=== PATIENT | female | born 1965 | race African-American/Black ===

== ENCOUNTER 2016-07-01 08:26 | Emergency (ER) | payer OTHER ==
[2016-07-01 08:36] VITALS: TEMP 98.2; BMI 42.0
--- NOTE | 2016-07-01 08:50 | PDOC ---
History of Present Illness - General History Source: Patient - History of Present Illness Presenting Symptoms: Chest Pain Timing/Duration: reports: intermittent Severity/Quality: reports: sharp <Donna ShresthaJoshua - Last Filed: 07/01/16 13:08> <Alex Mejia - Last Filed: 07/06/16 18:54> - General Chief Complaint: Chest Pain Stated Complaint: CHEST PAIN, NUMBNESS TO LT ARM Time Seen by Provider: 07/01/16 08:35 Past History - Past Medical History Anemia: No Asthma: Yes Cancer: No Cardiac Disorders: No CVA: No COPD: No CHF: No Dementia: No Diabetes: Yes (boarderline not on medication) GI Disorders: No Disorders: No HTN: No Hypercholesterolemia: No Kidney Stones: No Liver Disease: No Suicide Attempt (Hx): No (denies today. ) Seizures: No Thyroid Disease: No - Surgical History Abdominal Surgery: No Appendectomy: No Cardiac Surgery: No Cholecystectomy: No Lung Surgery: No Neurologic Surgery: No Orthopedic Surgery: Yes (rt.knee sx 2011) - Psycho/Social/Smoking Cessation Hx Anxiety: Yes Suicidal Ideation: No Smoking History: Former smoker Have you smoked in the past 12 months: Yes Number of Cigarettes Smoked Daily: 10 Information on smoking cessation initiated: No 'Breaking Loose' booklet given: 09/16/15 Hx Alcohol Use: No Drug/Substance Use Hx: No Substance Use Type: Prescribed Hx Substance Use Treatment: Yes <New Zealander,Rene - Last Filed: 07/01/16 13:08> <Alex Mejia - Last Filed: 07/06/16 18:54> - Past Medical History Allergies/Adverse Reactions: Allergies Allergy/AdvReac Type Severity Reaction Status Date / Time No Known Allergies Allergy Verified 07/01/16 08:36 Home Medications: Ambulatory Orders Escitalopram Oxalate [Lexapro -] 20 mg PO DAILY #30 tablet 09/17/15 Quetiapine Fumarate [Seroquel] 100 mg PO TID #90 tablet 09/17/15 Zolpidem Tartrate [Ambien] 10 mg PO HS #14 tablet MDD 10 09/17/15 Albuterol Sulfate Inhaler - [Ventolin HFA Inhaler -] 2 inh IH Q4H PRN #1 inhaler 09/20/15 Cardiac Specific PMH - Complaint Specific PMHX Pacemaker: No <Jacqueline ShresthaStef - Last Filed: 07/01/16 13:08> Review of Systems - Review of Systems Constitutional: No: Chills, Fever Respiratory: No: Cough, Shortness of Breath Cardiac (ROS): Yes: Chest Pain. No: Palpitations ABD/GI: No: Nausea, Vomiting Musculoskeletal: No: Neck Pain Neurological: Yes: Numbness <Jacqueline ShresthaStef - Last Filed: 07/01/16 13:08> *Physical Exam - Physical Exam General Appearance: Yes: Appropriately Dressed, Other (appears anxious) HEENT: positive: Normal Voice Neck: positive: Supple Respiratory/Chest: positive: Lungs Clear, Normal Breath Sounds. negative: Respiratory Distress Cardiovascular: positive: Regular Rate, S1, S2 Gastrointestinal/Abdominal: positive: Soft. negative: Tender Extremity: positive: Normal Inspection Integumentary: positive: Dry, Warm Neurologic: positive: Fully Oriented, Alert, Normal Mood/Affect <[place] ZealanderJacquelineJoshua - Last Filed: 07/01/16 13:08> - Vital Signs Last Vital Signs Temp Pulse Resp BP Pulse Ox 98.2 F 73 18 116/77 99 07/01/16 08:28 07/01/16 13:16 07/01/16 13:16 07/01/16 13:16 07/01/16 13:16 Heart Score/ECG Review - History History: Slightly suspicious - Electrocardiogram EKG: Normal - Age Age: 45-65 - Risk Factors Risk Factors Heart Score: Yes Hx Hypertension, Yes Hx Diabetes, Yes Hx Obesity Based on the list above the patient has:: >/=3 risk factors or Hx atherosclerotic disease - Troponin Troponin: </= normal limit - Score Heart Score - Total: 3 <New ZealanderJacquelineJoshua - Last Filed: 07/01/16 13:08> <Alex Mejia - Last Filed: 07/06/16 18:54> - ECG Intrepretation Comment:: 07/01/16 09:20 Twelve-lead EKG was performed and reviewed by me. There is normal sinus rhythm with a normal rate. The axis is normal. The intervals are normal. There are no ST or T wave abnormalities. Impression: Normal twelve-lead EKG 07/01/16 10:39 (Rene Shrestha) ED Treatment Course - LABORATORY CBC & Chemistry Diagram: 07/01/16 08:45 07/01/16 12:25 <Rene Shrestha - Last Filed: 07/01/16 13:08> - LABORATORY CBC & Chemistry Diagram: 07/01/16 08:45 07/01/16 12:25 <Alex Mejia - Last Filed: 07/06/16 18:54> - ADDITIONAL ORDERS Additional order review: 07/01/16 08:45 RBC 4.50 MCV 87.2 MCHC 33.3 RDW 14.6 MPV 7.4 L Neutrophils % 54.8 Lymphocytes % 33.9 Monocytes % 9.2 Eosinophils % 1.0 Basophils % 1.1 - Medications Given in the ED: ED Medications Discontinued Medications Generic Name Dose Route Start Last Admin Trade Name Freq PRN Reason Stop Dose Admin Aspirin 243 mg 07/01/16 08:44 07/01/16 09:39 Asa - PO 07/01/16 08:45 243 mg ONCE ONE Administration Medical Decision Making <Rene Shrestha - Last Filed: 07/01/16 13:08> <Alex Mejia - Last Filed: 07/06/16 18:54> - Medical Decision Making 07/01/16 08:45 51-year-old female history of depression, benzo dependence, asthma, non-insulin- dependent diabetes, heart murmur, hypertension, here with chest pain. Patient reports left-sided sharp chest pain that started last night and "moves around chest" as per patient, worsened when she took a deep breath and lasted for several minutes and then resolved. States pain recurred at 6 AM today and esolved after several minutes. Also complaining of possible diaphoresis, no nausea, vomiting, palpitations, leg pain or swelling. No history of similar symptoms as per patient. States she is scheduled for a stress test at 1 PM today. Last stress test was several years ago and negative as per patient. No obvious risk factors for DVT/PE. Pt also c/o numbness to b/l hands x 1 week. No neck pain See exam CP Not great story for ACS, no RFs for DVT/PE, unlikely dissection or PNA Stable in ED but appears anxious Rest of exam unremarkable -ekg -asa -labs -If calculated heart score low and trop x 2 neg, can be discharged for out-pt stress today as already scheduled B/l UE numbness No sensory deficit on exam ?peripheral neuropathy given h/o DM -basic labs pending 07/01/16 08:50 07/01/16 09:26 07/01/16 09:52 Isolated AST of greater than 40K!, Was wnl in 2016. Pt denies any ETOH abuse, new medications or h/o hepatitis. No abd pain, n/v or change to BM or urine. Will repeat labs 07/01/16 13:08 Labs, including repeat AST, unremarkable. Patient remains asymptomatic in ED. Given clinical findings and low heart score, feel comfortable discharging patient at this time, to have her f/u for already scheduled stress test immediately after ER visit. 07/01/16 13:11 (Rene Shrestha) 07/06/16 18:54 The patient was seen and evaluated in conjunction with SALTY Shrestha under my direct supervision, ancillary studies were reviewed. I agree with the plan as outlined by SALTY Shrestha . (Alex Mejia) *DC/Admit/Observation/Transfer <Rene Shrestha - Last Filed: 07/01/16 13:08> <Alex Mejia - Last Filed: 07/06/16 18:54> Diagnosis at time of Disposition: Chest pain Qualifiers: Chest pain type: unspecified Qualified Code(s): R07.9 - Chest pain, unspecified - Discharge Dispostion Disposition: HOME Condition at time of disposition: Good - Referrals Referrals: Fran Hernández [Primary Care Provider] - - Patient Instructions Printed Discharge Instructions: DI for Atypical Chest Pain Additional Instructions: Please report for your stress test immediately after ED visit
[2016-07-01 09:04] LABS: BASOPHIL 1.1 % (0-2.0); MCHC 33.3 g/dl (32.0-36.0); MEAN CELL VOLUME 87.2 fl (80-96); MEAN PLT VOLUME 7.4 fl (7.5-11.1); NEUTROPHILS 54.8 % (42.8-82.8); PLATELET COUNT 349 K/MM3 (134-434); RDW 14.6 % (11.6-15.6); WHITE BLOOD COUNT 8.3 K/mm3 (4.0-10.0)
[2016-07-01 09:23] LABS: ALBUMIN 3.5 g/dl (3.4-5.0); ANION GAP 6 (8-16); BILIRUBIN,TOTAL 0.3 mg/dL (0.2-1.0); CALCIUM 8.2 mg/dL (8.5-10.1); CO2 25 mmol/L (21-32); CREATININE 0.7 mg/dL (0.55-1.02); GLUCOSE,RANDOM 99 mg/dL (74-106); SGPT/ALT 30 U/L (12-78); TOT PROT 6.7 g/dl (6.4-8.2)
[2016-07-01 09:26] LABS: ALK PHOS 81 U/L (45-117); TROPONIN I < 0.02 ng/ml (0.00-0.05)
[2016-07-01 09:38] LABS: SGOT/AST 40427 U/L (15-37)
[2016-07-01] MEDS: ASPIRIN 81 MG CHEWABLE TABLETS PO ONE (09:39)
[2016-07-01] MEDS ORDERED: ASPIRIN 81 MG CHEWABLE TABLETS ONE (09:50)
[2016-07-01 12:57] LABS: ALBUMIN 3.6 g/dl (3.4-5.0); ANION GAP 7 (8-16); BILIRUBIN,TOTAL 0.1 mg/dL (0.2-1.0); CALCIUM 8.5 mg/dL (8.5-10.1); CO2 29 mmol/L (21-32); CREATININE 0.8 mg/dL (0.55-1.02); GLUCOSE,RANDOM 80 mg/dL (74-106); SGOT/AST 20 U/L (15-37); SGPT/ALT 29 U/L (12-78); TOT PROT 6.4 g/dl (6.4-8.2)
[2016-07-01 12:59] LABS: ALK PHOS 62 U/L (45-117); TROPONIN I < 0.02 ng/ml (0.00-0.05)
[2016-07-01 13:17] VITALS: BP 116/77; PULSE 73
--- NOTE | 2016-07-02 09:29 | EKG ---
Test Reason : Blood Pressure : / mmHG Vent. Rate : 081 BPM Atrial Rate : 081 BPM P-R Int : 154 ms QRS Dur : 086 ms QT Int : 382 ms P-R-T Axes : 060 -06 041 degrees QTc Int : 443 ms NORMAL SINUS RHYTHM POSSIBLE LEFT ATRIAL ENLARGEMENT NONSPECIFIC T WAVE ABNORMALITY ABNORMAL ECG NO PREVIOUS ECGS AVAILABLE Confirmed by LORNA KATZ MD ([id number]) on 07/02/2016 9:29:03 AM Referred By: Confirmed By:LORNA KATZ MD
== END 2016-07-01 13:48 | disposition home or self-care (01) ==
LOC: JER 08:26
DX: R07.9 Chest pain, unspecified (principal); I10 Essential (primary) hypertension; E11.9 Type 2 diabetes mellitus without complications; J45.909 Unspecified asthma, uncomplicated; E66.09 Other obesity due to excess calories; Z68.41 Body mass index [BMI] 40.0-44.9, adult
CPT/HCPCS: 36415; 71010-TC; 80053; 82550; 82553; 83880; 84484; 84703; 85025; 93005; 93010; 99282-25

== ENCOUNTER 2018-06-26 08:11 | Inpatient (IN) | payer OTHER ==
[2018-06-19 17:15] VITALS: BMI 37.1
[2018-06-26] MEDS ORDERED: BUPIVACAINE HCL 0.25% 125 MG/50 ML VIAL ONE (09:37)
--- NOTE | 2018-06-26 09:38 | HP ---
Admitting History and Physical - Admission Chief Complaint: Morbid obesity. BMI 37.1 History Source: Patient Limitations to Obtaining History: No Limitations - Past Medical History Cardiovascular: Yes: HTN, Hyperlipdemia Pulmonary: Yes: Sleep Apnea ...LMP: 09/15/15 ...LMP Comment: 2 y ago ...: No Endocrine: Yes: Diabetes Mellitus - Past Surgical History Past Surgical History: Yes: Additional Past Surgical History: Right knee surgery - Smoking History Smoking history: Former smoker Have you smoked in the past 12 months: Yes Aproximately how many cigarettes per day: 10 - Alcohol/Substance Use Hx Alcohol Use: No Home Medications - Allergies Allergies/Adverse Reactions: Allergies Allergy/AdvReac Type Severity Reaction Status Date / Time No Known Allergies Allergy Verified 06/19/18 16:58 - Home Medications Home Medications: Ambulatory Orders Escitalopram Oxalate [Lexapro -] 20 mg PO DAILY #30 tablet 09/17/15 Zolpidem Tartrate [Ambien] 10 mg PO HS #14 tablet 09/17/15 Albuterol Sulfate [Proair Hfa] 8.5 gm IH DAILY 06/19/18 Atorvastatin Ca [Lipitor] 40 mg PO DAILY 06/19/18 Ezetimibe [Zetia] 10 mg PO DAILY 06/19/18 Gabapentin 400 mg PO TID 06/19/18 Hydroxyzine HCl 50 mg PO DAILY 06/19/18 Losartan Potassium 50 mg PO DAILY 06/19/18 Meloxicam 15 mg PO DAILY 06/19/18 Oxycodone HCl 10 mg PO PRN PRN 06/19/18 Semaglutide [Ozempic] 0.5 mg SQ WEEKLY 06/19/18 Famotidine [Pepcid] 20 mg PO BID #60 tablet 06/26/18 Prednisone 20 mg PO ONCE 06/26/18 Family Disease History - Family Disease History Family Disease History: Heart Disease: Mother (), CA: Father () , Mother Review of Systems - Review of Systems Constitutional: denies: Chills, Fever Neck: reports: No Symptoms Cardiovascular: reports: No Symptoms Respiratory: reports: No Symptoms Gastrointestinal: reports: No Symptoms. denies: Abdominal Pain Neurological: reports: No Symptoms Pain Intensity: 0 Physical Examination Vital Signs: Vital Signs Temperature 98.6 F 06/26/18 08:54 Pulse Rate 76 06/26/18 08:54 Respiratory Rate 18 04/08/19 08:54 Blood Pressure 118/65 06/26/18 08:54 O2 Sat by Pulse Oximetry (%) Constitutional: Yes: Calm, Obese Neck: Yes: WNL Cardiovascular: Yes: WNL Respiratory: Yes: WNL, Regular Gastrointestinal: Yes: Soft, Abdomen, Obese. No: Tenderness Neurological: Yes: Alert, Oriented Problem List - Problems (1) Morbid obesity due to excess calories Code(s): E66.01 - MORBID (SEVERE) OBESITY DUE TO EXCESS CALORIES (2) BMI 37.0-37.9, adult Code(s): Z68.37 - BODY MASS INDEX (BMI) 37.0-37.9, ADULT (3) Diabetes mellitus type 2 in obese Code(s): E11.69 - TYPE 2 DIABETES MELLITUS WITH OTHER SPECIFIED COMPLICATION; E66.9 - OBESITY, UNSPECIFIED (4) Hypertension Code(s): I10 - ESSENTIAL (PRIMARY) HYPERTENSION Qualifiers: Hypertension type: unspecified Qualified Code(s): I10 - Essential (primary ) hypertension (5) Hyperlipidemia Code(s): E78.5 - HYPERLIPIDEMIA, UNSPECIFIED Qualifiers: Hyperlipidemia type: unspecified Qualified Code(s): E78.5 - Hyperlipidemia , unspecified (6) Sleep apnea Code(s): G47.30 - SLEEP APNEA, UNSPECIFIED Qualifiers: Sleep apnea type: unspecified type Qualified Code(s): G47.30 - Sleep apnea , unspecified Assessment/Plan Laparoscopic possible open vertical sleeve gastrectomy possible live rbiopsy possible upper endoscopy
[2018-06-26] MEDS ORDERED: fentaNYL CITRATE 250 MCG/5 ML VIAL ONE (09:54)
[2018-06-26] MEDS ORDERED: MIDAZOLAM HCL 2 MG/2 ML SINGLE DOSE VIAL ONE (09:54)
[2018-06-26] MEDS ORDERED: ALBUTEROL SO4 8 GM HFA INHALER IH PRN (10:00)
[2018-06-26] MEDS ORDERED: ceFAZolin SODIUM 1 GM VIAL ONE (11:18)
[2018-06-26] MEDS ORDERED: ePHEDrine SULFATE 50 MG/1 ML AMPULE ONE (11:18)
[2018-06-26] MEDS ORDERED: DEXAMETHASONE SOD PHOSPHATE 4 MG/1 ML VIAL ONE (11:18)
[2018-06-26] MEDS ORDERED: ONDANSETRON 4 MG/2 ML VIAL ONE (11:18)
[2018-06-26] MEDS ORDERED: NEOSTIGMINE METHYLSULFATE 0.5 MG/ML - 10 ML MDV ONE (11:30)
[2018-06-26] MEDS ORDERED: GLYCOPYRROLATE 0.2 MG/1 ML VIAL ONE ×3 (11:30)
[2018-06-26] MEDS ORDERED: PROPOFOL 20 ML ONE (11:31)
[2018-06-26] MEDS ORDERED: BUPIVACAINE HCL/PF 0.25% (2.5MG/ML) 10 ML VIAL IJ ONE (11:31)
[2018-06-26] MEDS ORDERED: ROCURONIUM BROMIDE 50 MG/5 ML VIAL ONE (11:31)
--- NOTE | 2018-06-26 11:42 | OP ---
Operative Note - Note: Operative Date: 06/26/18 Pre-Operative Diagnosis: Morbid obesity. BMI 37.1. Hyperlipidemia. Hypertension. Diabetes Mellitus type 2. Sleep apnea Operation: Laparoscopic vertical sleeve gastrectomy Post-Operative Diagnosis: Same as Pre-op Surgeon: Ananda Fischer Power Electronics Engineer: Barrera Plummer Anesthesia: General Specimens Removed: Greater curvature of stomach Estimated Blood Loss (mls): 30 Drains & Tubes with Location: 36 Fr Bougie Operative Report Dictated: Yes
[2018-06-26] MEDS ORDERED: FAMOTIDINE 20 MG/50 ML IVPB 20 MG/50 ML MG IVPB ONE (11:43)
[2018-06-26] MEDS ORDERED: METOCLOPRAMIDE HCL INJECTION 10 MG/2 ML VIAL ONE (11:43)
[2018-06-26] MEDS ORDERED: ACETAMINOPHEN INJECTION 100 ML IVPB ONE (11:44)
[2018-06-26] MEDS ORDERED: METOCLOPRAMIDE HCL INJECTION 10 MG/2 ML VIAL IVPUSH SCH (11:45)
[2018-06-26] MEDS ORDERED: ACETAMINOPHEN 1000 MG/100 ML VIAL (NON FORMULARY) IVPB SCH (11:45)
[2018-06-26] MEDS: METOCLOPRAMIDE HCL INJECTION 10 MG/2 ML VIAL IVPUSH SCH ×2 (12:01→18:01)
[2018-06-26] MEDS ORDERED: FAMOTIDINE 20 MG PREMIXED IVPB IVPB ONE (12:10)
[2018-06-26 12:23] LABS: HEMATOCRIT 36.9 % (32.4-45.2); HEMOGLOBIN 12.1 GM/dl (10.7-15.3); MCH 28.1 pg (25.7-33.7); MCHC 32.7 g/dl (32.0-36.0); MEAN CELL VOLUME 86.2 fl (80-96); MEAN PLT VOLUME 7.3 fl (7.5-11.1); PLATELET COUNT 350 K/MM3 (134-434); RBC 4.28 M/mm3 (3.60-5.2); RDW 13.7 % (11.6-15.6); WHITE BLOOD COUNT 11.9 K/mm3 (4.0-10.8)
[2018-06-26 12:39] LABS: ALBUMIN 3.2 g/dl (3.4-5.0); ALK PHOS 57 U/L (45-117); ANION GAP 7 MMOL/L (8-16); BILIRUBIN,TOTAL 0.5 mg/dl (0.2-1); BLOOD UREA NITROGEN 19 mg/dl (7-18); CALCIUM 8.1 mg/dl (8.5-10); CHLORIDE 107 mmol/L (98-107); CO2 23 mmol/L (21-32); CREATININE 0.7 mg/dl (0.55-1.3); GLUCOSE,RANDOM 138 mg/dl (74-106); POTASSIUM 3.5 mmol/L (3.5-5.1); SGOT/AST 24 U/L (15-37); SGPT/ALT 26 U/L (13-61); SODIUM 137 mmol/L (136-145); TOT PROT 5.4 g/dl (6.4-8.2)
[2018-06-26] MEDS: ONDANSETRON 4 MG/2 ML VIAL IVPUSH SCH ×3 (12:45→20:27)
[2018-06-26] MEDS: SODIUM CHLORIDE 1,000 ML IV SCH (13:42)
[2018-06-26] MEDS: HYDROmorphone HCL CARPU-JECT 1 MG/1 ML DISP.SYRIN IVPB PRN ×3 (13:47→22:57)
[2018-06-26] MEDS ORDERED: LACTATED RINGERS SOLUTION 1,000 ML IV SCH (14:00)
[2018-06-26] MEDS: INSULIN SLIDING SCALE (NOVOLOG) 1 VIAL SQ SCH (18:01)
[2018-06-26] MEDS: ACETAMINOPHEN 1000 MG/100 ML VIAL (NON FORMULARY) IVPB SCH (18:02)
--- NOTE | 2018-06-26 19:56 | SPEC ---
DATE OF OPERATION: 06/26/2018 SURGEON: Ananda Fischer MD ANALYTICS ANALYST: Barrera Plummer MD PREOPERATIVE DIAGNOSES: 1. Morbid obesity. 2. Diabetes mellitus, type 2. 3. Hyperlipidemia. 4. Hypertension. 5. Sleep apnea. 6. Body mass index of 37.1. POSTOPERATIVE DIAGNOSES: 1. Morbid obesity. 2. Diabetes mellitus, type 2. 3. Hyperlipidemia. 4. Hypertension. 5. Sleep apnea. 6. Body mass index of 37.1. PROCEDURE: Laparoscopic vertical sleeve gastrectomy. SPECIMEN: Greater curvature of the stomach. BOUGIE: Size 36-Romansh. ESTIMATED BLOOD LOSS: 30 mL. DRAINS: None. ANESTHESIA: GET. REASON FOR PROCEDURE: This is a 53-year-old female who presented to the office for weight loss options. After describing different options, she decided to proceed with a laparoscopic, possible open vertical sleeve gastrectomy, possible liver biopsy, and upper endoscopy. RISKS AND BENEFITS: After describing the different options for weight loss management, the patient decided to proceed with a laparoscopic, possible open vertical sleeve gastrectomy. The patient was seen by the respective subspecialties and cleared for surgery. The risks and benefits of the procedure were explained. These included bleeding, infection, hernia, UT, DVT, PE, injury to surrounding structures including the liver, colon, bowel, spleen, esophagus, vessel injury, nerve injury, weight regain, gastric leak, staple line leak, sleeve leak, obstruction, vitamin deficiency, hair loss, and as some of the possible complications. The patient understood and signed informed consent. DESCRIPTION OF PROCEDURE: The patient was placed supine on the operating room table. The patient underwent general endotracheal intubation. The arms were brought out at 90 degrees and secured. A foot board was placed, and the legs were secured laterally with padding. The abdomen was prepped and draped in the usual sterile fashion. A timeout was performed. An incision was made in the left upper quadrant, and a Veress needle inserted. Pneumoperitoneum was established. Subsequently, the Veress needle was removed, and a 5-mm trocar was placed under direct visualization with the laparoscope. The laparoscopic camera was inserted, and inspection of the abdominal cavity was performed. An incision was made in the supraumbilical region, and a 15-mm trocar placed under direct visualization. A 5-mm trocar was then placed in the right upper quadrant, and a 5-mm trocar placed below the left subcostal margin. A stab wound was made in the subxiphoid area, and a Liz clamp inserted and removed to dilate the tract. A Catarino liver retractor was inserted. The post was secured at the bedside by the nursing staff. The patient was placed in steep reverse Trendelenburg position. The Catarino liver retractor was used to secure the liver towards the anterior abdominal wall. The pylorus was identified and 6 cm proximal to it, the lesser sac was entered using the Ligasure device. All lateral attachments to the greater curvature of the stomach including the short gastric vessels were ligated using the Ligasure device toward the gastrosplenic and gastrophrenic ligaments. Once this was done in its entirety, it was confirmed that all tubes within the nasal or oropharyngeal cavity including a temperature probe was removed by Anesthesia. The bougie was then inserted by Anesthesia. Transection of the stomach was then begun staying adjacent to the bougie but away from the angularis. Transection of the stomach was performed near the portion of the stomach where the lesser sac was entered. Two laparoscopic Endo-GIOVANNA black loads were used at this location. Laparoscopic Endo-GIOVANNA purple loads were then used for the remainder of the transection until the greater curvature of the stomach was fully transected. This was done staying close to the bougie. Care was taken to stay away from the angle of His cephalad. The staple line was then inspected. Hemostasis was identified. A leak test was then performed. The stomach was clamped distally to the staple line. Irrigation solution was placed in the left upper quadrant, and air insufflated by Anesthesia into the sleeve. No leaks were identified, and no obstruction was identified. This was done throughout the entirety of the staple line. In addition, an upper endoscopy was performed. The endoscope was placed into the patients mouth and the entirety of the esophagus, GE junction, gastric pouch and staple line were inspected. No obstruction or leak was noted. The stomach was suctioned and the endoscope removed fully intact. At this point, the irrigation solution was suctioned, and again hemostasis noted. The 15-mm supraumbilical trocar was then removed, and the specimen removed from the site using a sponge stick jo. The specimen was inspected, and a Veress needle inserted. The specimen insufflated adequately, and no leak was identified. The staple line was noted to be intact. A Donte Kyle device was then used to close the fascia with a 0 Vicryl suture at this site. Again, hemostasis was noted. The Catarino liver retractor was then removed under direct visualization. Pneumoperitoneum was desufflated, and the fascial sutures were secured. Hemostasis was noted at all incision sites, and Marcaine was injected at all incision sites. All incision sites were closed using 4-0 Biosyn. Sterile dressings were applied. The patient tolerated the procedure well, and was transferred to the recovery room in stable condition. The patient was transferred to telemetry for further monitoring. Navya [id number]
--- NOTE | 2018-06-26 21:07 | SPEC ---
DATE OF OPERATION: 06/26/2018 SURGEON: Ananda Fischer MD HOUSEHOLD REFRIGERATION MECHANIC: Barrera Plummer MD PREOPERATIVE DIAGNOSES: 1. Morbid obesity. 2. Body mass index of 37.1. 3. Hypertension. 4. Hyperlipidemia. 5. Diabetes mellitus, type 2. 6. Sleep apnea. POSTOPERATIVE DIAGNOSES: 1. Morbid obesity. 2. Body mass index of 37.1. 3. Hypertension. 4. Hyperlipidemia. 5. Diabetes mellitus, type 2. 6. Sleep apnea. PROCEDURE: Laparoscopic vertical sleeve gastrectomy. SPECIMENS: Greater curvature of the stomach. ESTIMATED BLOOD LOSS: 30 mL. DRAINS: None. ANESTHESIA: GET. BOUGIE: Size 36-Nepali. REASON FOR PROCEDURE: This is a 53-year-old female who presented for weight loss options. After describing different options, decided to proceed with a laparoscopic, possible open vertical sleeve gastrectomy, possible liver biopsy, upper endoscopy. RISKS AND BENEFITS: After describing the different options for weight loss management, the patient decided to proceed with a laparoscopic, possible open vertical sleeve gastrectomy. The patient was seen by the respective subspecialties and cleared for surgery. The risks and benefits of the procedure were explained. These included bleeding, infection, hernia, ND, DVT, PE, injury to surrounding structures including the liver, colon, bowel, spleen, esophagus, vessel injury, nerve injury, weight regain, gastric leak, staple line leak, sleeve leak, obstruction, vitamin deficiency, hair loss, and as some of the possible complications. The patient understood and signed informed consent. DESCRIPTION OF PROCEDURE: The patient was placed supine on the operating room table. The patient underwent general endotracheal intubation. The arms were brought out at 90 degrees and secured. A foot board was placed, and the legs were secured laterally with padding. The abdomen was prepped and draped in the usual sterile fashion. A timeout was performed. An incision was made in the left upper quadrant, and a Veress needle inserted. Pneumoperitoneum was established. Subsequently, the Veress needle was removed, and a 5-mm trocar was placed under direct visualization with the laparoscope. The laparoscopic camera was inserted, and inspection of the abdominal cavity was performed. An incision was made in the supraumbilical region, and a 15-mm trocar placed under direct visualization. A 5-mm trocar was then placed in the right upper quadrant, and a 5-mm trocar placed below the left subcostal margin. A stab wound was made in the subxiphoid area, and a Liz clamp inserted and removed to dilate the tract. A Catarino liver retractor was inserted. The post was secured at the bedside by the nursing staff. The patient was placed in steep reverse Trendelenburg position. The Catarino liver retractor was used to secure the liver towards the anterior abdominal wall. The pylorus was identified and 6 cm proximal to it, the lesser sac was entered using the Ligasure device. All lateral attachments to the greater curvature of the stomach including the short gastric vessels were ligated using the Ligasure device toward the gastrosplenic and gastrophrenic ligaments. Once this was done in its entirety, it was confirmed that all tubes within the nasal or oropharyngeal cavity including a temperature probe was removed by Anesthesia. The bougie was then inserted by Anesthesia. Transection of the stomach was then begun staying adjacent to the bougie but away from the angularis. Transection of the stomach was performed near the portion of the stomach where the lesser sac was entered. Two laparoscopic Endo-GIOVANNA black loads were used at this location. Laparoscopic Endo-GIOVANNA purple loads were then used for the remainder of the transection until the greater curvature of the stomach was fully transected. This was done staying close to the bougie. Care was taken to stay away from the angle of His cephalad. The staple line was then inspected. Hemostasis was identified. A leak test was then performed. The stomach was clamped distally to the staple line. Irrigation solution was placed in the left upper quadrant, and air insufflated by Anesthesia into the sleeve. No leaks were identified, and no obstruction was identified. This was done throughout the entirety of the staple line. In addition, an upper endoscopy was performed. The endoscope was placed into the patients mouth and the entirety of the esophagus, GE junction, gastric pouch and staple line were inspected. No obstruction or leak was noted. The stomach was suctioned and the endoscope removed fully intact. At this point, the irrigation solution was suctioned, and again hemostasis noted. The 15-mm supraumbilical trocar was then removed, and the specimen removed from the site using a sponge stick jo. The specimen was inspected, and a Veress needle inserted. The specimen insufflated adequately, and no leak was identified. The staple line was noted to be intact. A Donte Kyle device was then used to close the fascia with a 0 Vicryl suture at this site. Again, hemostasis was noted. The Catarino liver retractor was then removed under direct visualization. Pneumoperitoneum was desufflated, and the fascial sutures were secured. Hemostasis was noted at all incision sites, and Marcaine was injected at all incision sites. All incision sites were closed using 4-0 Biosyn. Sterile dressings were applied. The patient tolerated the procedure well, and was transferred to the recovery room in stable condition. The patient was transferred to telemetry for further monitoring. Navya KEARNS/[id number]
[2018-06-26] MEDS: ENOXAPARIN NA (PORCINE) 40 MG/0.4 ML DISP.SYRIN SQ SCH (22:01)
[2018-06-26] MEDS: FAMOTIDINE 20 MG/50 ML IVPB 20 MG/50 ML MG IVPB SCH (22:01)
[2018-06-27] MEDS: METOCLOPRAMIDE HCL INJECTION 10 MG/2 ML VIAL IVPUSH SCH ×4 (00:30→11:22)
[2018-06-27] MEDS: ONDANSETRON 4 MG/2 ML VIAL IVPUSH SCH ×5 (00:31→11:22)
[2018-06-27] MEDS: ACETAMINOPHEN 1000 MG/100 ML VIAL (NON FORMULARY) IVPB SCH ×2 (00:42→06:22)
[2018-06-27 01:56] VITALS: PULSE 58
[2018-06-27] MEDS: HYDROmorphone HCL CARPU-JECT 1 MG/1 ML DISP.SYRIN IVPB PRN ×2 (03:45→11:22)
[2018-06-27 05:39] VITALS: TEMP 98.4
[2018-06-27] MEDS: INSULIN SLIDING SCALE (NOVOLOG) 1 VIAL SQ SCH ×3 (07:20→11:22)
[2018-06-27 08:07] LABS: HEMATOCRIT 36.2 % (32.4-45.2); HEMOGLOBIN 11.9 GM/dl (10.7-15.3); MCH 28.2 pg (25.7-33.7); MCHC 32.8 g/dl (32.0-36.0); MEAN CELL VOLUME 85.8 fl (80-96); MEAN PLT VOLUME 7.8 fl (7.5-11.1); PLATELET COUNT 327 K/MM3 (134-434); RBC 4.22 M/mm3 (3.60-5.2); RDW 13.9 % (11.6-15.6); WHITE BLOOD COUNT 13.4 K/mm3 (4.0-10.8)
[2018-06-27 08:13] LABS: ALBUMIN 3.2 g/dl (3.4-5.0); ALK PHOS 56 U/L (45-117); ANION GAP 5 MMOL/L (8-16); BILIRUBIN,TOTAL 0.6 mg/dl (0.2-1); BLOOD UREA NITROGEN 17 mg/dl (7-18); CALCIUM 8.2 mg/dl (8.5-10); CHLORIDE 107 mmol/L (98-107); CO2 27 mmol/L (21-32); CREATININE 0.6 mg/dl (0.55-1.3); GLUCOSE,RANDOM 93 mg/dl (74-106); POTASSIUM 3.9 mmol/L (3.5-5.1); SGOT/AST 21 U/L (15-37); SGPT/ALT 23 U/L (13-61); SODIUM 139 mmol/L (136-145)
[2018-06-27 09:36] VITALS: BP 100/52
[2018-06-27] MEDS: FAMOTIDINE 20 MG/50 ML IVPB 20 MG/50 ML MG IVPB SCH (09:37)
[2018-06-27] MEDS: ENOXAPARIN NA (PORCINE) 40 MG/0.4 ML DISP.SYRIN SQ SCH (09:37)
[2018-06-27 10:11] LABS: TOT PROT 5.8 g/dl (6.4-8.2)
[2018-06-27] MEDS ORDERED: oxyCODONE HCL 5 MG TABLET PO PRN (11:25)
--- NOTE | 2018-06-27 11:28 | PN ---
Progress Note (short form) - Note Progress Note: POD 1 Pain and nausea controlled Vital Signs Period Temp Pulse Resp BP Sys/Alejandro Pulse Ox Last 24 Hr 97.8 F-98.9 F 58-83 14-20 90-121/42-65 94-100 Abd osft CBC,CMP WBC 13.4 K/mm3 (4.0-10.8) H 06/27/18 07:14 RBC 4.22 M/mm3 (3.60-5.2) 06/27/18 07:14 Hgb 11.9 GM/dl (10.7-15.3) 06/27/18 07:14 Hct 36.2 % (32.4-45.2) 06/27/18 07:14 MCV 85.8 fl (80-96) 06/27/18 07:14 MCH 28.2 pg (25.7-33.7) 06/27/18 07:14 MCHC 32.8 g/dl (32.0-36.0) 06/27/18 07:14 RDW 13.9 % (11.6-15.6) 06/27/18 07:14 Plt Count 327 K/MM3 (134-434) 06/27/18 07:14 MPV 7.8 fl (7.5-11.1) 06/27/18 07:14 Sodium 139 mmol/L (136-145) 06/27/18 07:14 Potassium 3.9 mmol/L (3.5-5.1) 06/27/18 07:14 Chloride 107 mmol/L (98-107) 06/27/18 07:14 Carbon Dioxide 27 mmol/L (21-32) 06/27/18 07:14 Anion Gap 5 MMOL/L (8-16) L 06/27/18 07:14 BUN 17 mg/dl (7-18) 06/27/18 07:14 Creatinine 0.6 mg/dl (0.55-1.3) 06/27/18 07:14 Creat Clearance w eGFR 104.57 (>60) 06/27/18 07:14 POC Glucometer 92 UNITS (80-120) 06/27/18 11:04 Random Glucose 93 mg/dl (74-106) 06/27/18 07:14 Calcium 8.2 mg/dl (8.5-10) L 06/27/18 07:14 Total Bilirubin 0.6 mg/dl (0.2-1) 06/27/18 07:14 AST 21 U/L (15-37) 06/27/18 07:14 ALT 23 U/L (13-61) 06/27/18 07:14 Alkaline Phosphatase 56 U/L (45-117) 06/27/18 07:14 Total Protein 5.8 g/dl (6.4-8.2) L 06/27/18 07:14 Albumin 3.2 g/dl (3.4-5.0) L 06/27/18 07:14 UGI: no leak/obstruction Clears Discharge home Problem List - Problems (1) Morbid obesity due to excess calories Code(s): E66.01 - MORBID (SEVERE) OBESITY DUE TO EXCESS CALORIES (2) BMI 37.0-37.9, adult Code(s): Z68.37 - BODY MASS INDEX (BMI) 37.0-37.9, ADULT (3) Diabetes mellitus type 2 in obese Code(s): E11.69 - TYPE 2 DIABETES MELLITUS WITH OTHER SPECIFIED COMPLICATION; E66.9 - OBESITY, UNSPECIFIED (4) Hypertension Code(s): I10 - ESSENTIAL (PRIMARY) HYPERTENSION Qualifiers: Hypertension type: unspecified Qualified Code(s): I10 - Essential (primary ) hypertension (5) Hyperlipidemia Code(s): E78.5 - HYPERLIPIDEMIA, UNSPECIFIED Qualifiers: Hyperlipidemia type: unspecified Qualified Code(s): E78.5 - Hyperlipidemia , unspecified (6) Sleep apnea Code(s): G47.30 - SLEEP APNEA, UNSPECIFIED Qualifiers: Sleep apnea type: unspecified type Qualified Code(s): G47.30 - Sleep apnea , unspecified
[2018-06-27] MEDS ORDERED: SODIUM CHLORIDE 1,000 ML IV SCH (11:30)
[2018-06-27] MEDS: SODIUM CHLORIDE 1,000 ML IV SCH (11:59)
--- NOTE | 2018-06-28 15:46 | PATH ---
Surgical Pathology Report Patient Name: JOSE RAY Med. Rec. #: [id number] /Age/Gender: 1965 (Age: 53) / F Account: [id number] Location: [facility] MED-S[facility]G Taken: 06/26/2018 Received: 06/26/2018 Reported: 06/28/2018 Physicians: Ananda Fischer M.D. Specimen(s) Received GREATER CURVATURE STOMACH Clinical History Morbid obesity Final Diagnosis STOMACH, GREATER CURVATURE, LAPAROSCOPIC VERTICAL SLEEVE GASTRECTOMY: PORTION OF STOMACH WITH MILD CHRONIC GASTRITIS. IMMUNOHISTOCHEMICAL STAIN FOR H. PYLORI IS NEGATIVE. Electronically Signed Jessica Carlisle M.D. Gross Description Received in formalin, labeled "greater curvature of stomach," is a 84 gram, 15.5 x 3.0 x 2.5 cm. portion of stomach with a stapled margin of resection. The serosa is vega-batista with minimal attached fat. The mucosa is vega-pink with normal folds. No mucosal masses are identified. Still Pump Operator sections are submitted in one cassette. /06/27/2018 saudi/06/27/2018
== END 2018-06-27 12:53 | disposition home or self-care (01) | DRG 403 ==
LOC: FM/S 08:11
PROVIDERS: ADMIT Surgery; ATTEND Surgery
PROC: 0DB64Z3 Excision of Stomach, Percutaneous Endoscopic Approach, Vertical (ICD-10-PCS; principal; 2018-06-26 10:00)
DX: E66.01 Morbid (severe) obesity due to excess calories (principal); Z68.37 Body mass index [BMI] 37.0-37.9, adult; I10 Essential (primary) hypertension; E78.5 Hyperlipidemia, unspecified; E11.9 Type 2 diabetes mellitus without complications; G47.30 Sleep apnea, unspecified
CPT/HCPCS: 36415; 74241-TC-FY; 80053; 82962; 85027; 88305-TC; 88342-TC; 94760; J0131; J7030

== ENCOUNTER 2020-12-22 11:08 | Emergency (ER) | payer OTHER ==
[2020-12-22 11:17] VITALS: TEMP 98; BMI 26.9
[2020-12-22] MEDS ORDERED: ACETAMINOPHEN 500 MG TABLET (FP) PO ONE (12:53)
[2020-12-22] MEDS ORDERED: ACETAMINOPHEN 500 MG TABLET (FP) ONE (12:57)
[2020-12-22] MEDS ORDERED: KETOROLAC TROMETHAMINE 60 MG/2 ML VIAL IM ONE (14:25)
[2020-12-22 14:27] VITALS: BP 129/67; PULSE 67
[2020-12-22] MEDS ORDERED: KETOROLAC TROMETHAMINE 60 MG/2 ML VIAL ONE (14:28)
== END 2020-12-22 14:35 | disposition home or self-care (01) ==
LOC: JER 11:08
PROC: 3E0233Z Introduction of Anti-inflammatory into Muscle, Percutaneous Approach (ICD-10-PCS; principal; 2020-12-22)
DX: R22.42 Localized swelling, mass and lump, left lower limb (principal)
CPT/HCPCS: 93971-TC; 99284-25

== ENCOUNTER 2021-11-06 09:40 | Emergency (ER) | payer OTHER ==
[2021-11-06 09:52] VITALS: BP 120/68; PULSE 67; RESP 18; TEMP 97.9; BMI 29.0
[2021-11-06] MEDS ORDERED: KETOROLAC TROMETHAMINE 30 MG/1 ML VIAL IM ONE (10:45)
[2021-11-06] MEDS ORDERED: KETOROLAC TROMETHAMINE 30 MG/1 ML VIAL ONE (10:52)
== END 2021-11-06 11:23 | disposition home or self-care (01) ==
LOC: JERFT 09:40 → JER 09:40 → JERFT 11:23
PROC: 3E0233Z Introduction of Anti-inflammatory into Muscle, Percutaneous Approach (ICD-10-PCS; principal; 2021-11-06)
DX: R20.2 Paresthesia of skin (principal); S60.211A Contusion of right wrist, initial encounter
CPT/HCPCS: 73110-TC-RT-FY; 99284-25